=== PATIENT | male | born 1985 | race Caucasian/White ===

== ENCOUNTER 2019-03-09 09:39 | Observation (INO) | payer SELFPAY ==
[2019-03-09] MEDS ORDERED: Sodium Chloride 0.9% 1000 ML 1,000 ML IV STA (10:26)
[2019-03-09] MEDS ORDERED: Pepcid 20 MG VIAL IV ONE ×2 (10:26→10:31)
[2019-03-09] MEDS ORDERED: Zofran 4 MG/2 ML VIAL IV ONE (10:26)
[2019-03-09] MEDS ORDERED: Zofran 4 MG/2 ML VIAL ONE (10:31)
[2019-03-09] MEDS ORDERED: Sodium Chloride 0.9% 1000 ML 1,000 ML ONE ×2 (10:31→11:41)
--- NOTE | 2019-03-09 10:40 | ERPHSYRPT ---
- History of Present Illness Time Seen by Provider: 03/09/19 09:50 Historian: patient Exam Limitations: clinical condition Patient Subjective Stated Complaint: Pt c/o of pain that begins in the RUQ and radiates to the medial upper abdomen, was at [facility] yesterday and had a KUB done, stated that he had a bowel movement this morning that was "gooey and dark ", just stated that his pain is now radiating all over his abdomen Triage Nursing Assessment: Pt wheeled into the ER, pain with palpatation to the RUQ, vitals wnl, pulses normal, skin dry and normal, rates pain 7/10, denies N& V today Physician History: PATIENT WITH A HISTORY OF ABDOMINAL PAIN IN NOVEMBER 2018 EVALUATED AT [facility] AND DIAGNOSED WITH BOWEL ILEUS, DEVELOPED GENERALIZED ABDOMINAL PAIN X 2 WEEKS, PROGRESSIVELY WORSE X 3 DAYS, DENIES EMESIS, DIARRHEA OR FEVER. [facility]ALUATION [facility] YESTERDAY WITH A NORMAL NONCONTRAST ABDOMINAL CT EXAM. AN OUT PATIENT LAB TEST CBC WITH A WBC-16,200. DESCRIBES HIS PAIN SHARP CRAMPY RIGHT SIDED PAIN, DENIES RADIATION WITH PAIN SCALE 7/10. Timing/Duration: week(s) Activities at Onset: none Quality: stabbing, throbbing Abdominal Pain Onset Location: RUQ, RLQ Pain Radiation: no radiation Severity of Pain-Max: moderate Severity of Pain-Current: moderate Modifying Factors: Improves With: nothing Associated Symptoms: denies symptoms Previous symptoms: same symptoms as today (IN NOVEMBER 2018) Allergies/Adverse Reactions: floxacillin Allergy (Verified 03/09/19 10:01) levofloxacin Allergy (Verified 03/09/19 10:01) ofloxacin [From Floxin] Allergy (Verified 03/09/19 10:01) Quinolones Allergy (Verified 03/09/19 10:01) Home Medications: Amoxicillin/Potassium Clav [Augmentin 500-125 Tablet] 1 each PO TID 03/09/19 [ History] - Review of Systems Constitutional: No Fever, No Chills Eyes: No Symptoms Ears, Nose, & Throat: No Symptoms Respiratory: No Symptoms, No Cough, No Dyspnea Cardiac: No Symptoms, No Chest Pain, No Edema, No Syncope Abdominal/Gastrointestinal: Abdominal Pain, No Nausea, No Vomiting, No Diarrhea Genitourinary Symptoms: No Symptoms, No Dysuria Musculoskeletal: No Symptoms, No Back Pain, No Neck Pain Skin: No Symptoms, No Rash Neurological: No Symptoms, No Dizziness, No Focal Weakness, No Sensory Changes Psychological: No Symptoms Endocrine: No Symptoms All Other Systems: Reviewed and Negative - Past Medical History Pertinent Past Medical History: Yes Other Medical History: ileus - Past Surgical History Past Surgical History: No - Social History Smoking Status: Former smoker Exposure to second hand smoke: Yes Drug Use: marijuana Patient Lives Alone: No - Nursing Vital Signs Nursing Vital Signs: Initial Vital Signs Temperature 98.7 F 03/09/19 09:43 Pulse Rate 70 03/09/19 09:43 Blood Pressure 125/78 03/09/19 09:43 O2 Sat by Pulse Oximetry 99 03/09/19 09:43 Pain Scale Pain Intensity 2 - Physical Exam General Appearance: mild distress Eye Exam: PERRL/EOMI, eyes nml inspection Ears, Nose, Throat Exam: normal ENT inspection, pharynx normal, moist mucous membranes Neck Exam: normal inspection, non-tender, supple, full range of motion Respiratory Exam: normal breath sounds, lungs clear, No respiratory distress Cardiovascular Exam: regular rate/rhythm, normal heart sounds Gastrointestinal/Abdomen Exam: soft, normal bowel sounds, tenderness (RIGHT UPPER QUADRANT TENDERNESS, WITH MODERATE GUARDING. RIGHT LATERAL ABDOMINAL TENDERNESS ANTERIOR TO RIGHT CVA), No mass Back Exam: normal inspection, normal range of motion, No CVA tenderness, No vertebral tenderness Extremity Exam: normal inspection, normal range of motion, pelvis stable Neurologic Exam: alert, oriented x 3, cooperative, normal mood/affect, nml cerebellar function, sensation nml, No motor deficits Skin Exam: normal color, warm, dry SpO2 Interpretation: normal SpO2: 99 - CT Exams Abdomen/Pelvis CT Interpretation: Discussed w/radiologist, Normal Appendix (NEGATIVE STUDY) - Radiology Ultrasound Exam Gallbladder Ultrasound: discussed w/radiologist (TINY GALLBLADDER SLUDGE WITH POSSIBLE TINY POLYP, NEGATIVE CHOLELITHIASIS OR CHOLECYSTITIS) Ordered Tests: Active Orders 24 hr Category Date Time Status Up With Assistance ROUTINE Activity 03/09/19 14:31 Ordered Code Status Order ROUTINE Care 03/09/19 14:31 Ordered IV Care Q6H Care 03/09/19 14:31 Ordered IV Insertion STAT Care 03/09/19 10:26 Active Intake and Output Q12H Care 03/09/19 14:[address] in Observation ROUTINE Care 03/09/19 14:31 Ordered Vital Signs Q4H Care 03/09/19 14:31 Ordered Clear Liquid Diet 03/09/19 Dinner Ordered ABDOMEN AND PELVIS W CONTRAST [CT] Stat Exams 03/09/19 10:27 Completed GALLBLADDER [US] Stat Exams 03/09/19 10:27 Completed PROTIME WITH INR Stat Lab 03/09/19 10:26 Completed UA W/RFX UR CULTURE Stat Lab 03/09/19 10:29 Completed Transfer Order Routine Transfer 03/09/19 Ordered Medication Summary Generic Name Dose Route Start Last Admin Trade Name Freq PRN Reason Stop Dose Admin Sodium Chloride 1,000 mls @ 50 mls/hr 03/09/19 11:45 Sodium Chloride 0.9% 1000 Ml IV 04/08/19 11:44 .Q20H CLEM Sodium Chloride 1,000 mls @ 100 mls/hr 03/09/19 11:45 03/09/19 11:48 Sodium Chloride 0.9% 1000 Ml IV 04/08/19 11:44 100 mls/hr .Q10H CLEM Administration Discontinued Medications Generic Name Dose Route Start Last Admin Trade Name Freq PRN Reason Stop Dose Admin Famotidine 20 mg 03/09/19 10:26 03/09/19 10:42 Pepcid 20 Mg Vial IV 03/09/19 10:27 20 mg STAT ONE Administration Famotidine Confirm 03/09/19 10:31 Pepcid 20 Mg Vial Administered 03/09/19 10:32 Dose 20 mg IV .STK-MED ONE Hydromorphone HCl 1 mg 03/09/19 10:59 03/09/19 11:10 Dilaudid 2 Mg Injection IV 03/09/19 11:00 1 mg STAT ONE Administration Hydromorphone HCl Confirm 03/09/19 11:01 Hydromorphone 1 Mg/Ml Ampule Administered 03/09/19 11:02 Dose 1 mg .ROUTE .STK-MED ONE Sodium Chloride 1,000 mls @ 999 mls/hr 03/09/19 10:26 03/09/19 11:48 Sodium Chloride 0.9% 1000 Ml IV 03/09/19 11:26 Infused .Q1H1M STA Infusion Sodium Chloride Confirm 03/09/19 10:31 Sodium Chloride 0.9% 1000 Ml Administered 03/09/19 10:32 Dose 1,000 mls @ ud .ROUTE .STK-MED ONE Sodium Chloride Confirm 03/09/19 11:41 Sodium Chloride 0.9% 1000 Ml Administered 03/09/19 11:42 Dose 1,000 mls @ ud .ROUTE .STK-MED ONE Ketorolac Tromethamine 30 mg 03/09/19 14:24 Toradol 30 Mg Injection IV 03/09/19 14:25 STAT ONE Ondansetron HCl 4 mg 03/09/19 10:26 03/09/19 10:42 Zofran 4 Mg/2 Ml Vial IV 03/09/19 10:27 4 mg STAT ONE Administration Ondansetron HCl Confirm 03/09/19 10:31 Zofran 4 Mg/2 Ml Vial Administered 03/09/19 10:32 Dose 4 mg .ROUTE .STK-MED ONE Lab/Rad Data: Laboratory Results 03/09/19 03/09/19 Range/Units 10:29 10:26 PT 16.7 H (8.83-12.87) SECONDS INR 1.47 (0.8-3.0) Urine Color YELLOW (YELLOW) Urine Appearance CLEAR (CLEAR) Urine pH 9.0 (5-6) Ur Specific [place] 1.004 (1.005-1.025) Urine Protein NEGATIVE (Negative) Urine Ketones NEGATIVE (NEGATIVE) Urine Blood NEGATIVE (0-5) Scotty/ul Urine Nitrite NEGATIVE (NEGATIVE) Urine Bilirubin NEGATIVE (NEGATIVE) Urine Urobilinogen 2 (0-1) mg/dL Ur Leukocyte Esterase NEGATIVE (NEGATIVE) Urine WBC (Auto) NONE SEEN (0-5) /HPF Urine RBC (Auto) NONE (0-2) /HPF U Epithel Cells (Auto) NONE (FEW) /HPF Urine Bacteria (Auto) NONE (NEGATIVE) /HPF Urine Culture Reflexed NO (NO) Urine Glucose NEGATIVE (NEGATIVE) mg/dL - Progress Progress: pain not gone completely Progress Note: 03/09/19 10:45 IV NORMAL SALINE 1 LITER/HR, PEPCID 20MG, ZOFRAN 4MG IV AND DILAUDID 1MG IV 03/09/19 14:[address] Other (DISCUSSED WITH DR JOE AT 1200 FOR OBSERVATION) - Departure Departure Disposition: Observation Clinical Impression: ACUTE ABDOMINAL PAIN Condition: Stable Critical Care Time: No Referrals: BE JOE, [Primary Care Provider] -
[2019-03-09 10:52] LABS: Appearance CLEAR (CLEAR); Bilirubin NEGATIVE (NEGATIVE); Blood NEGATIVE Ery/ul (0-5); Glucose NEGATIVE (NEGATIVE); Ketones NEGATIVE (NEGATIVE); Leukocyte Esterase NEGATIVE (NEGATIVE); Nitrite NEGATIVE (NEGATIVE); Protein,Urine Dip NEGATIVE (Negative); Specific Gravity 1.004 (1.005-1.025); Urobilinogen 2 mg/dL (0-1)
[2019-03-09 10:54] LABS: WBC NONE SEEN /HPF (0-5)
[2019-03-09] MEDS ORDERED: DILAUDID 2 MG INJECTION IV ONE (10:59)
[2019-03-09] MEDS ORDERED: Hydromorphone 1 mg/ml Ampule ONE (11:01)
[2019-03-09 11:37] LABS: INR 1.47 (0.8-3.0); PROTIME 16.7 SECONDS (8.83-12.87)
--- NOTE | 2019-03-09 11:41 | XRAY ---
Indication: Right upper quadrant pain. Two-dimensional gallbladder sonogram performed. Comparison: None Gallbladder normally with minimal sludge in the dependent portion. Query 3-4 mm polyp. No gallstones, wall thickening, or pericholecystic fluid. Common bile duct measures measures 2.8 mm. No intrahepatic biliary distention. There is a well-circumscribed right lobe hepatic echogenic lesion measuring 2.8 x 0.7 x 1.4 cm favoring focal hepatic steatosis. Remaining visualized liver, pancreas, and right kidney appear sonographically normal. Right kidney measures 10.3 cm in length. No ascites. Impression: 1. Tiny gallbladder sludge with possible tiny polyp. Negative cholelithiasis or cholecystitis. 2. Incidental focal hepatic steatosis as detailed.
[2019-03-09] MEDS ORDERED: Sodium Chloride 0.9% 1000 ML 1,000 ML IV SCH (11:45)
[2019-03-09] MEDS: Sodium Chloride 0.9% 1000 ML 1,000 ML IV SCH ×2 (11:48→23:29)
--- NOTE | 2019-03-09 14:02 | XRAY ---
Indication: Abdominal pain, right greater than left. Multiple contiguous axial images obtained through the abdomen and pelvis using 80 cc Isovue 370 contrast. Enteric contrast also used. Comparison: CT abdomen without contrast one day earlier. Lung bases again negative for infiltrate or effusion. Heart is not enlarged. There is now small amount of enteric contrast in the distal esophagus possibly from gastroesophageal reflux. Stomach is distended with contrast. Contrasted stomach and bowel loops appear nonobstructed without focal bowel distention, wall thickening, or inflammatory changes. Normal appearing appendix. No free fluid/air. Stable small ultrasound proven hepatic focal fatty steatosis adjacent to the falciform ligament. Remaining liver, gallbladder, pancreas, spleen, adrenal glands, kidneys, ureters, bladder, and aorta appear unremarkable. No pathologic retroperitoneal lymphadenopathy. Osseous structures remain intact. Right superior pubic ramus demonstrates 1.5 cm bone island not previously imaged. Impression: 1. Small amount of enteric contrast in distal esophagus. Rule out gastroesophageal reflux. 2. Stable hepatic focal fatty steatosis. 3. Right pubic ramus bone island. 4. Remaining CT abdomen/pelvis with contrast exam is negative. CT DI 14.82
[2019-03-09] MEDS ORDERED: TORAdol 30 mg Injection IV ONE (14:24)
[2019-03-09] MEDS ORDERED: TYLENOL 325 MG PO PRN (14:31)
[2019-03-09] MEDS ORDERED: MORPHINE SULFATE 4 MG INJ IV PRN (14:31)
[2019-03-09] MEDS ORDERED: TORAdol 30 mg Injection ONE (14:34)
[2019-03-09] MEDS ORDERED: BENADRYL 25 MG CAPSULE PO PRN (17:45)
[2019-03-09] MEDS: FLAGYL 500 MG IVPB 500 MG/100 ML BAG IV SCH (19:45)
[2019-03-09] MEDS: Pepcid 20 MG VIAL IV SCH (21:06)
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
[2019-03-10 04:29] LABS: ALBUMIN 3.3 g/dL (3.5-5.0); ALKALINE PHOSPHATASE 43 U/L (38-126); ANION GAP 10.3 MEQ/L (5-15); BLOOD UREA NITROGEN 7 mg/dL (9-20); CHLORIDE 108 mmol/L (98-107); Carbon Dioxide 24 mmol/L (22-30); Creatinine 1 0.83 mg/dL (0.66-1.25); Glucose 94 mg/dL (74-106); Potassium 4.5 mmol/L (3.5-5.1); SGOT/AST 14 U/L (17-59); SGPT/ALT 18 U/L (0-50); SODIUM 138 mmol/L (137-145); Total Protein 6.2 g/dL (6.3-8.2)
[2019-03-10 04:30] LABS: BASOPHIL % 0.3 % (0.0-0.4); Basophil (Absolute #) 0.04 (0-0.4); Eosinophil % 3.5 % (0.00-5.0); Eosinophil (Absolute #) 0.44 (0-0.5); Granulocyte Absolute (ANC) 10.06 (1.4-6.9); Granulocytes % 79.4 % (36.0-66.0); Hematocrit 36.1 % (42-50); Hemoglobin 12.3 gm/dl (12.5-18.0); Lymphocyte (Absolute #) 1.25 (1.0-4.6); Lymphocytes % 9.9 % (24.0-44.0); Mean Corpuscular Hemoglobin 29.6 pg (26-32); Mean Corpuscular Hgb Concent. 34.1 g/dl (32-36); Mean Platelet Volume 9.6 fl (6-9.5); Monocyte (Absolute #) 0.88 (0.0-1.3); Monocytes % 6.9 % (0.0-12.0); Platelet Count 267 K/mm3 (150-450); Red Blood Count 4.15 M/mm3 (4.1-5.6); White Blood Count 12.7 K/mm3 (4.0-10.5)
[2019-03-10] MEDS: FLAGYL 500 MG IVPB 500 MG/100 ML BAG IV SCH (06:12)
[2019-03-10 07:17] VITALS: BP 116/58; PULSE 72; O2SAT 99
[2019-03-10] MEDS: Pepcid 20 MG VIAL IV SCH (08:56)
[2019-03-10] MEDS: Sodium Chloride 0.9% 1000 ML 1,000 ML IV SCH (08:56)
[2019-03-10 11:16] LABS: AMYLASE 46 U/L (30-110)
--- NOTE | 2019-03-12 09:24 | CONS ---
CONSULT DATE: 03/10/2019 HISTORY: A 33 year-old was normal until November. He went to [facility]. He had abdominal pain and cramps. He was diagnosed having an ileus. He was subsequently discharged. There was no other diagnosis. He presents here now. He has had a CT scan showing a small cystic area in the liver. His labs white count is elevated in 13,000 to 14,000 range. It came down to 12,000. He is feeling a little bit better now. He is slightly hungry. He did have sludge in his gallbladder. There is concern that he might have a polyp. He has had some diarrhea. He had some loose stools through the night. He did have Augmentin a couple days ago. I believe he has had a stool for Clostridium difficile. His stool is negative for occult blood. He was seen and examined at the bedside. His and two young sons are present. His abdomen is totally soft, totally flat. No palpable organomegaly or mass. There is no neck lymphadenopathy. He states he had a little bit of low grade temperature. He states he has had some knee pain and some joint pain. He has been farming. It certainly has been a tough spring. He thinks he probably can go home and he probably can eat. IMPRESSION: Very nonspecific almost viral syndrome in nature. His amylase and lipase were also normal. He did order a rheumatoid factor, RAIN, sedimentation rate, this could be early onset of collagen vascular disorder. He can follow up with HIDA scan and has been ordered as an outpatient. There is nothing immediately surgical here.
[2019-03-12 15:24] LABS: Source: Feces
[2019-03-12 15:59] LABS: Giardia Antigen EIA Negative (Negative)
[2019-03-13 09:05] LABS: H.Pylori Stool Ag. EIA Negative (Negative); Source H. Pylori Ag. Feces
[2019-03-14 06:43] LABS: Anaplasma phagocytophilum Not Detected; Babesia Species by PCR Not Detected; Ehrlichia ewingii/canis by PCR Not Detected
[2019-03-14 07:18] LABS: Ehrlichia muris-like by PCR Not Detected
== END 2019-03-10 12:35 | disposition home or self-care (01) ==
LOC: ED 09:39 → MED SURG 14:48
PROVIDERS: ADMIT Family Medicine; ATTEND Family Medicine
DX: R10.9 Unspecified abdominal pain (principal); R51 Headache; M54.9 Dorsalgia, unspecified; R50.9 Fever, unspecified; M25.569 Pain in unspecified knee; R53.1 Weakness; R19.7 Diarrhea, unspecified
CPT/HCPCS: 36000; 36415; 74177; 76705; 80053; 81001; 82150; 82270; 83690; 85025; 85610; 86060; 87045; 87046; 87177; 87209; 87335; 87338; 87798; 96360; 96361; 96374; 96375; 99285; G0378; 96376; J1170; J1885; J2405

== ENCOUNTER 2021-01-07 07:39 | Emergency (ER) | payer SELFPAY ==
[2021-01-07] MEDS ORDERED: Zofran 4 MG/2 ML VIAL IV ONE (08:09)
[2021-01-07] MEDS ORDERED: PROTONIX 40 MG IV IV ONE ×2 (08:09→08:13)
[2021-01-07] MEDS ORDERED: SUBLIMAZE 100 MCG/2 ML IV ONE (08:09)
[2021-01-07] MEDS ORDERED: Sodium Chloride 0.9% 1000 ML 1,000 ML IV STA (08:09)
[2021-01-07] MEDS ORDERED: Zofran 4 MG/2 ML VIAL ONE (08:13)
[2021-01-07] MEDS ORDERED: Sodium Chloride 0.9% 1000 ML 1,000 ML ONE (08:14)
[2021-01-07] MEDS ORDERED: SUBLIMAZE 100 MCG/2 ML ONE (08:14)
[2021-01-07 08:26] LABS: Absolute Neutrophil Ct (ANC) 11.61 (1.4-6.9); BASOPHIL % 0.3 % (0.0-0.4); Basophil (Absolute #) 0.04 (0-0.4); Eosinophil % 1.4 % (0.00-5.0); Hematocrit 46.8 % (42-50); Hemoglobin 15.9 gm/dl (12.5-18.0); Lymphocyte (Absolute #) 1.63 (1.0-4.6); Lymphocytes % 11.4 % (24.0-44.0); Mean Corpuscular Hemoglobin 29.2 pg (26-32); Monocyte (Absolute #) 0.81 (0.0-1.3); Monocytes % 5.7 % (0.0-12.0); Neutrophil % 81.2 % (36.0-66.0); Platelet Count 255 K/mm3 (150-450); Red Blood Count 5.44 M/mm3 (4.1-5.6); Red Cell Distribution Width 12.7 % (11.5-14.0); White Blood Count 14.3 K/mm3 (4.0-10.5)
[2021-01-07 08:35] LABS: ALBUMIN 4.9 g/dL (3.5-5.0); ALKALINE PHOSPHATASE 53 U/L (38-126); AMYLASE 78 U/L (30-110); ANION GAP 23.3 MEQ/L (5-15); BLOOD UREA NITROGEN 15 mg/dL (9-20); CHLORIDE 100 mmol/L (98-107); Carbon Dioxide 20 mmol/L (22-30); Creatinine 1 1.01 mg/dL (0.66-1.25); EST GLOMERULAR FILTRATION RATE > 60.0 ML/MIN; Glucose 113 mg/dL (74-106); LIPASE 119 U/L (23-300); Potassium 3.8 mmol/L (3.5-5.1); SGOT/AST 27 U/L (17-59); SODIUM 140 mmol/L (137-145); Total Protein 7.7 g/dL (6.3-8.2)
[2021-01-07 08:42] LABS: SGPT/ALT 28 U/L (0-50)
--- NOTE | 2021-01-07 08:42 | ERPHSYRPT ---
- History of Present Illness Historian: patient Patient Subjective Stated Complaint: "vomiting and abdominal pain since Tuesday" Triage Nursing Assessment: Patient presents to ED with cc of vomiting and generalized abdominal pain since Tuesday. Patient is A & Ox3, able to provide history. Patient is actively vomiting clear stomach contents in triage. Abdomen soft, tender to palpation. Last BM 01/05, was passing gas yesterday. Skin pink and warm, slightly diaphoretic. Slight tachypnea noted, HR and BP WNL. Patient appears anxious, is writhing in bed. Physician History: 35 yo wm w N/V/subxyphoid pain/Loose stool x 2 days. Pain is rated 7/10 and stabbing. Movement makes the pain better, while rest makes it worse. He denies fever/dysuria/hematuria/melena/hematochezia/chest pain. He does occ smoke marijuana. Timing/Duration: day(s) (2 days) Activities at Onset: rest Quality: stabbing Pain Radiation: no radiation Severity of Pain-Max: moderate Severity of Pain-Current: moderate Modifying Factors: Improves With: other (Better w movement/Worse w rest) Associated Symptoms: loss of appetite, nausea, vomiting, No back, No chest pain, No diaphoresis, No diarrhea, No fever/chills, No fatigue, No headache, No heartburn, No neck pain, No rash, No shortness of breath, No syncope, No testicular pain, No weakness Previous symptoms: no prior history Allergies/Adverse Reactions: floxacillin Allergy (Verified 03/09/19 10:01) levofloxacin Allergy (Verified 03/09/19 10:01) ofloxacin [From Floxin] Allergy (Verified 03/09/19 10:01) Quinolones Allergy (Verified 03/09/19 10:01) Hx Tetanus, Diphtheria Vaccination/Date Given: No Hx Influenza Vaccination/Date Given: No Hx Pneumococcal Vaccination/Date Given: No Travel Risk - International Travel Have you traveled outside of the country in past 3 weeks: No - Coronavirus Screening Are you exhibiting any of the following symptoms?: No Close contact with a COVID-19 positive Pt in past 14-21 Days: No - Vaccine Status Have you recieved a Covid-19 vaccination: No - Review of Systems Constitutional: No Symptoms Eyes: No Symptoms Ears, Nose, & Throat: No Symptoms Respiratory: No Symptoms Cardiac: No Symptoms Abdominal/Gastrointestinal: Abdominal Pain, Nausea, Vomiting, Appetite Changes, No Diarrhea, No Constipation, No Hematemesis, No Hematochezia, No Melena, No Dysphagia Genitourinary Symptoms: No Symptoms Musculoskeletal: No Symptoms Skin: No Symptoms Neurological: No Symptoms Psychological: No Symptoms Endocrine: No Symptoms Hematologic/Lymphatic: No Symptoms Immunological/Allergic: No Symptoms - Past Medical History Pertinent Past Medical History: Yes Neurological History: No Pertinent History ENT History: No Pertinent History, Other Cardiac History: No Pertinent History Respiratory History: No Pertinent History Endocrine Medical History: No Pertinent History Musculoskeletal History: No Pertinent History GI Medical History: Other History: No Pertinent History Psycho-Social History: No Pertinent History Male Reproductive Disorders: No Pertinent History Other Medical History: ileus in the past - Past Surgical History Past Surgical History: No Neuro Surgical History: No Pertinent History Cardiac: No Pertinent History Respiratory: No Pertinent History Gastrointestinal: No Pertinent History Genitourinary: No Pertinent History Musculoskeletal: No Pertinent History Male Surgical History: No Pertinent History - Social History Smoking Status: Former smoker Exposure to second hand smoke: Yes Drug Use: none Patient Lives Alone: No Significant Family History: no pertinent family hx - Nursing Vital Signs Nursing Vital Signs: Initial Vital Signs Temperature 97.7 F 01/07/21 07:45 Pulse Rate 70 01/07/21 07:45 Respiratory Rate 24 01/07/21 07:45 Blood Pressure 143/78 01/07/21 07:45 O2 Sat by Pulse Oximetry 99 01/07/21 07:45 Pain Scale Pain Intensity 4 - Physical Exam General Appearance: no apparent distress Eye Exam: PERRL/EOMI, eyes nml inspection Ears, Nose, Throat Exam: normal ENT inspection, TMs normal, pharynx normal, moist mucous membranes Neck Exam: normal inspection, non-tender, supple, full range of motion, No meningismus, No mass, No Brudzinski, No Kernig's Respiratory Exam: normal breath sounds, lungs clear, airway intact, No chest tenderness, No respiratory distress Cardiovascular Exam: regular rate/rhythm, normal heart sounds, normal peripheral pulses, No murmur Gastrointestinal/Abdomen Exam: soft, normal bowel sounds, tenderness (Mild sub- xyphoid wo guarding or rebound), No distention, No mass, No guarding, No e cchymosis Back Exam: normal inspection, normal range of motion, No CVA tenderness Extremity Exam: normal inspection, normal range of motion, pelvis stable Neurologic Exam: alert, oriented x 3, cooperative, environmental services manager II-XII nml as tested, normal mood/affect, nml cerebellar function, nml station & gait, sensation nml, No motor deficits, No sensory deficit Skin Exam: normal color, warm, dry, No rash Lymphatic Exam: No adenopathy SpO2 Interpretation: normal SpO2: 99 O2 Delivery: Room Air Ordered Tests: Active Orders 24 hr Category Date Time Status IV Insertion STAT Care 01/07/21 08:09 Completed ABDOMEN AND PELVIS W CONTRAST [CT] Stat Exams 01/07/21 08:44 Completed AMYLASE Stat Lab 01/07/21 08:00 Completed CBC W DIFF Stat Lab 01/07/21 08:00 Completed CMP Stat Lab 01/07/21 08:00 Completed LIPASE Stat Lab 01/07/21 08:00 Completed TROPONIN Q3H Lab 01/07/21 08:00 Completed UA W/RFX UR CULTURE Stat Lab 01/07/21 09:36 Completed Urine Triage Profile Stat Lab 01/07/21 10:21 Completed Medication Summary Discontinued Medications Generic Name Dose Route Start Last Admin Trade Name Freq PRN Reason Stop Dose Admin Droperidol 1.25 mg 01/07/21 10:25 01/07/21 10:37 Inapsine 5 Mg/2 Ml IV 01/07/21 10:26 1.25 mg STAT ONE Administration Droperidol Confirm 01/07/21 10:36 Inapsine 5 Mg/2 Ml Administered 01/07/21 10:37 Dose 5 mg .ROUTE .STK-MED ONE Fentanyl Citrate 50 mcg 01/07/21 08:09 01/07/21 08:17 Sublimaze 100 Mcg/2 Ml IV 01/07/21 08:10 50 mcg STAT ONE Administration Fentanyl Citrate Confirm 01/07/21 08:14 Sublimaze 100 Mcg/2 Ml Administered 01/07/21 08:15 Dose 100 mcg .ROUTE .STK-MED ONE Sodium Chloride 1,000 mls @ 999 mls/hr 01/07/21 08:09 01/07/21 09:27 Sodium Chloride 0.9% 1000 Ml IV 01/07/21 09:09 Infused .Q1H1M STA Infusion Sodium Chloride Confirm 01/07/21 08:14 Sodium Chloride 0.9% 1000 Ml Administered 01/07/21 08:15 Dose 1,000 mls @ ud .ROUTE .STK-MED ONE Ketorolac Tromethamine 30 mg 01/07/21 09:14 01/07/21 09:32 Toradol 30 Mg Injection IV 01/07/21 09:15 30 mg STAT ONE Administration Ketorolac Tromethamine Confirm 01/07/21 09:29 Toradol 30 Mg Injection Administered 01/07/21 09:30 Dose 30 mg .ROUTE .STK-MED ONE Ondansetron HCl 4 mg 01/07/21 08:09 01/07/21 08:17 Zofran 4 Mg/2 Ml Vial IV 01/07/21 08:10 4 mg STAT ONE Administration Ondansetron HCl Confirm 01/07/21 08:13 Zofran 4 Mg/2 Ml Vial Administered 01/07/21 08:14 Dose 4 mg .ROUTE .STK-MED ONE Pantoprazole Sodium 40 mg 01/07/21 08:09 01/07/21 08:17 Protonix 40 Mg Iv IV 01/07/21 08:10 40 mg STAT ONE Administration Pantoprazole Sodium Confirm 01/07/21 08:13 Protonix 40 Mg Iv Administered 01/07/21 08:14 Dose 40 mg IV .STK-MED ONE Lab/Rad Data: Laboratory Result Diagrams 01/07/21 08:00 01/07/21 08:00 Laboratory Results 01/07/21 01/07/21 01/07/21 Range/Units 10:21 09:36 08:00 WBC (4.0-10.5) K/mm3 RBC (4.1-5.6) M/mm3 Hgb (12.5-18.0) gm/dl Hct (42-50) % MCV (78-100) fl MCH (26-32) pg MCHC (32-36) g/dl RDW (11.5-14.0) % Plt Count (150-450) K/mm3 MPV (7.5-11.0) fl Gran % (36.0-66.0) % Eos # (Auto) (0-0.5) Absolute Lymphs (auto) (1.0-4.6) Absolute Monos (auto) (0.0-1.3) Lymphocytes % (24.0-44.0) % Monocytes % (0.0-12.0) % Eosinophils % (0.00-5.0) % Basophils % (0.0-0.4) % Absolute Granulocytes (1.4-6.9) Basophils # (0-0.4) Sodium (137-145) mmol/L Potassium (3.5-5.1) mmol/L Chloride (98-107) mmol/L Carbon Dioxide (22-30) mmol/L Anion Gap (5-15) MEQ/L BUN (9-20) mg/dL Creatinine (0.66-1.25) mg/dL Estimated GFR ML/MIN Glucose (74-106) mg/dL Calcium (8.4-10.2) mg/dL Total Bilirubin (0.2-1.3) mg/dL AST (17-59) U/L ALT (0-50) U/L Alkaline Phosphatase (38-126) U/L Troponin I < 0.012 (0.000-0.034) ng/mL Serum Total Protein (6.3-8.2) g/dL Albumin (3.5-5.0) g/dL Amylase (30-110) U/L Lipase (23-300) U/L Urine Color YELLOW (YELLOW) Urine Appearance CLEAR (CLEAR) Urine pH 8.0 (5-6) Ur Specific [place] 1.011 (1.005-1.025) Urine Protein NEGATIVE (Negative) Urine Ketones SMALL (NEGATIVE) Urine Blood NEGATIVE (0-5) Scotty/ul Urine Nitrite NEGATIVE (NEGATIVE) Urine Bilirubin NEGATIVE (NEGATIVE) Urine Urobilinogen 2 (0-1) mg/dL Ur Leukocyte Esterase NEGATIVE (NEGATIVE) Urine WBC (Auto) NONE (0-5) /HPF Urine RBC (Auto) NONE (0-2) /HPF U Epithel Cells (Auto) NONE (FEW) /HPF Urine Bacteria (Auto) NONE (NEGATIVE) /HPF Urine Culture Reflexed NO (NO) Urine Glucose NEGATIVE (NEGATIVE) mg/dL Urine Opiates Level NEGATIVE (NEGATIVE) Ur Methadone NEGATIVE (NEGATIVE) Urine Barbiturates NEGATIVE (NEGATIVE) Ur Phencyclidine (PCP) NEGATIVE (NEGATIVE) Urine Amphetamine NEGATIVE (NEGATIVE) U Benzodiazepine Level NEGATIVE (NEGATIVE) Urine Cocaine NEGATIVE (NEGATIVE) Urine Marijuana (THC) POSITIVE (NEGATIVE) 01/07/21 01/07/21 Range/Units 08:00 08:00 WBC 14.3 H (4.0-10.5) K/mm3 RBC 5.44 (4.1-5.6) M/mm3 Hgb 15.9 (12.5-18.0) gm/dl Hct 46.8 (42-50) % MCV 86.0 (78-100) fl MCH 29.2 (26-32) pg MCHC 34.0 (32-36) g/dl RDW 12.7 (11.5-14.0) % Plt Count 255 (150-450) K/mm3 MPV 10.0 (7.5-11.0) fl Gran % 81.2 H (36.0-66.0) % Eos # (Auto) 0.20 (0-0.5) Absolute Lymphs (auto) 1.63 (1.0-4.6) Absolute Monos (auto) 0.81 (0.0-1.3) Lymphocytes % 11.4 L (24.0-44.0) % Monocytes % 5.7 (0.0-12.0) % Eosinophils % 1.4 (0.00-5.0) % Basophils % 0.3 (0.0-0.4) % Absolute Granulocytes 11.61 H (1.4-6.9) Basophils # 0.04 (0-0.4) Sodium 140 (137-145) mmol/L Potassium 3.8 (3.5-5.1) mmol/L Chloride 100 (98-107) mmol/L Carbon Dioxide 20 L (22-30) mmol/L Anion Gap 23.3 H (5-15) MEQ/L BUN 15 (9-20) mg/dL Creatinine 1.01 (0.66-1.25) mg/dL Estimated GFR > 60.0 ML/MIN Glucose 113 H (74-106) mg/dL Calcium 10.0 (8.4-10.2) mg/dL Total Bilirubin 1.20 (0.2-1.3) mg/dL AST 27 (17-59) U/L ALT 28 (0-50) U/L Alkaline Phosphatase 53 (38-126) U/L Troponin I (0.000-0.034) ng/mL Serum Total Protein 7.7 (6.3-8.2) g/dL Albumin 4.9 (3.5-5.0) g/dL Amylase 78 (30-110) U/L Lipase 119 (23-300) U/L Urine Color (YELLOW) Urine Appearance (CLEAR) Urine pH (5-6) Ur Specific [place] (1.005-1.025) Urine Protein (Negative) Urine Ketones (NEGATIVE) Urine Blood (0-5) Scotty/ul Urine Nitrite (NEGATIVE) Urine Bilirubin (NEGATIVE) Urine Urobilinogen (0-1) mg/dL Ur Leukocyte Esterase (NEGATIVE) Urine WBC (Auto) (0-5) /HPF Urine RBC (Auto) (0-2) /HPF U Epithel Cells (Auto) (FEW) /HPF Urine Bacteria (Auto) (NEGATIVE) /HPF Urine Culture Reflexed (NO) Urine Glucose (NEGATIVE) mg/dL Urine Opiates Level (NEGATIVE) Ur Methadone (NEGATIVE) Urine Barbiturates (NEGATIVE) Ur Phencyclidine (PCP) (NEGATIVE) Urine Amphetamine (NEGATIVE) U Benzodiazepine Level (NEGATIVE) Urine Cocaine (NEGATIVE) Urine Marijuana (THC) (NEGATIVE) - Progress Progress Note: 01/07/21 10:22 1L NS bolus/50umg IV Fentanyl/4mg IV Zofran w moderate relief of pain Pain return, so 30mg IV Toradol given which did not decrease pain 01/07/21 11:17 Droperidol 1.25mg w improvement UDS + for THC. Symptoms possibly related to cannabinoid hyperemesis syndrome - Departure Departure Disposition: Home Clinical Impression: Nausea & vomiting, Abdominal pain Condition: Stable Critical Care Time: No Referrals: BE JOE DO [Primary Care Provider] - Instructions: Acute Abdomen (Belly Pain), Adult (DC), Nausea and Vomiting, Adult (DC) Additional Instructions: Fluids Rest Return to ER for increasing pain or temperature greater than 100.5 Zofran for nausea/Vomiting Start Protonix once a day Prescriptions: Ondansetron ODT 4 MG [Zofran Odt 4 mg] 4 mg PO Q6H PRN PRN #10 tab.rapdis PRN Reason: Nausea/Vomiting PANTOPRAZOLE 40 mg Tablet [Protonix 40MG Tablet] 40 mg PO DAILY #30 tab
[2021-01-07] MEDS ORDERED: TORAdol 30 mg Injection IV ONE (09:14)
[2021-01-07] MEDS ORDERED: TORAdol 30 mg Injection ONE (09:29)
[2021-01-07 09:56] LABS: Appearance CLEAR (CLEAR); Bilirubin NEGATIVE (NEGATIVE); Blood NEGATIVE Ery/ul (0-5); Glucose NEGATIVE (NEGATIVE); Ketones SMALL (NEGATIVE); Leukocyte Esterase NEGATIVE (NEGATIVE); Nitrite NEGATIVE (NEGATIVE); Protein,Urine Dip NEGATIVE (Negative); Specific Gravity 1.011 (1.005-1.025); Urobilinogen 2 mg/dL (0-1)
--- NOTE | 2021-01-07 10:11 | XRAY ---
Indication: Abdomen pain, nausea, and vomiting. Multiple contiguous axial images obtained through the abdomen and pelvis using 80 cc Isovue 370 contrast. Comparison: March 09, 2019. Lung bases clear. Heart is not enlarged. Noncontrasted stomach and bowel loops nonobstructed with normal appendix. New tiny nonspecific pelvic free fluid. No walled off fluid collection or free air. Remaining liver, gallbladder, pancreas, spleen, adrenal glands, kidneys, ureters, bladder, and aorta unremarkable. No pathologic retroperitoneal lymphadenopathy. Osseous structures intact with stable right superior pubic ramus bone island. No ventral or inguinal hernias. Impression: 1. New tiny nonspecific pelvic free fluid. 2. Remaining CT abdomen/pelvis with contrast exam is negative.
[2021-01-07] MEDS ORDERED: Inapsine 5 MG/2 ML IV ONE (10:25)
[2021-01-07] MEDS ORDERED: Inapsine 5 MG/2 ML ONE (10:36)
[2021-01-07 11:08] LABS: Amphetamine,Urine NEGATIVE (NEGATIVE); Barbiturate,Urine NEGATIVE (NEGATIVE); Benzodiazepine,Urine NEGATIVE (NEGATIVE); Cocaine,Urine NEGATIVE (NEGATIVE); Methadone,Urine NEGATIVE (NEGATIVE); Opiate,Urine NEGATIVE (NEGATIVE); PCP,Urine NEGATIVE (NEGATIVE); THC,Urine POSITIVE (NEGATIVE)
[2021-01-07 11:18] VITALS: BP 106/60; PULSE 68
[2021-01-07 11:19] VITALS: O2SAT 99
== END 2021-01-07 11:23 | disposition home or self-care (01) ==
LOC: ED 07:39
DX: R11.2 Nausea with vomiting, unspecified (principal); R10.9 Unspecified abdominal pain
CPT/HCPCS: 36000; 36415; 74177; 80053; 80307; 81001; 82150; 83690; 84484; 85025; 96360; 96374; 96375; 99284; J1885; J2405; J3010